=== PATIENT | female | born 1955 | race Caucasian/White ===

== ENCOUNTER 2017-03-20 12:17 | Inpatient (IN) | payer MEDICAID, OTHER ==
[~2017-03-20] VITALS: Ht 167.6 cm; Wt 95.4 kg
[~2017-03-20 12:17] MED LIST: CARI-277 PO; GABA100C9; SIMV-13; TRAM50TA2
[2017-03-20] MEDS ORDERED: ACETAMINOPHEN 325 MG TAB PO ONE ×2 (14:30→21:00)
[2017-03-20 14:39] LABS: Basophils # (auto) 0 uL; Basophils % (auto) 0.4 % (0.0-2.0); Eosinophils # (auto) 0 uL; Eosinophils % (auto) 0.1 % (0.0-7.0); Hematocrit 45.7 % (36.0-46.0); Hemoglobin 15.2 g/dL (12.2-16.2); Lymphocytes # (auto) 0.3 uL; Lymphocytes % (auto) 3.7 % (10.0-50.0); Mean Corpuscular Hemoglobin 30.9 pg (28.0-32.0); Mean Corpuscular Hgb Conc. 33.3 g/dL (32.0-36.0); Mean Corpuscular Volume 92.8 fL (80.0-100.0); Monocytes # (auto) 0.8 uL; Monocytes % (auto) 11.2 % (0.0-12.0); Neutrophils # (auto) 6.1 uL; Neutrophils % (auto) 84.6 % (37.0-80.0); Nucleated Red Blood Cells % 0.1 %; Platelet Count (auto) 194 10^3/uL (140-450); Red Blood Cells 4.92 10^6/uL (4.0-5.20); Red Cell Distribution Width 13.4 % (11.8-14.3); White Blood Cell 7.2 10^3/uL (4.4-10.8)
[2017-03-20] MEDS ORDERED: SODIUM CHLORIDE 0.9% 1,000 ML IV ONE (15:09)
[2017-03-20 15:14] LABS: Albumin 3.8 g/dL (3.4-5.0); BUN/Creatinine Ratio 13.4; Bilirubin, Total 0.4 mg/dL (0.2-1.0); Calcium 8.6 mg/dL (8.5-10.1); Potassium 3.8 mmol/L (3.5-5.1); Total Protein 8.1 g/dL (6.4-8.2)
[2017-03-20] MEDS ORDERED: LEVOFLOXACIN 500MG 100 ML IV ONE (15:15)
[2017-03-20 19:11] LABS: Urine Bacteria NONE SEEN /hpf (None Seen); Urine Blood 2+ /uL (Negative); Urine Hyaline Cast FEW /lpf (0 - 2); Urine Mucus FEW (None Seen); Urine WBC 1 /hpf (0 - 5)
[2017-03-20 23:20] VITALS: BP 138/92
[2017-03-21] MEDS ORDERED: ASPI81TA27 PO (02:08)
[2017-03-21] MEDS ORDERED: AMLO5TAB2 PO (02:08)
[2017-03-21] MEDS: ACETAMINOPHEN 500 MG TAB PO PRN ×3 (03:21→23:45)
[2017-03-21 05:00] VITALS: BP 140/75
[2017-03-21 06:03] LABS: Basophils # (auto) 0.1 uL; Basophils % (auto) 1.1 % (0.0-2.0); Eosinophils # (auto) 0 uL; Eosinophils % (auto) 0.1 % (0.0-7.0); Hematocrit 42.6 % (36.0-46.0); Hemoglobin 14.3 g/dL (12.2-16.2); Lymphocytes # (auto) 0.8 uL; Lymphocytes % (auto) 14.7 % (10.0-50.0); Mean Corpuscular Hemoglobin 31.2 pg (28.0-32.0); Mean Corpuscular Hgb Conc. 33.6 g/dL (32.0-36.0); Mean Corpuscular Volume 92.8 fL (80.0-100.0); Monocytes # (auto) 0.9 uL; Neutrophils # (auto) 3.4 uL; Neutrophils % (auto) 67.1 % (37.0-80.0); Platelet Count (auto) 168 10^3/uL (140-450); Red Blood Cells 4.59 10^6/uL (4.0-5.20); Red Cell Distribution Width 13.4 % (11.8-14.3); White Blood Cell 5.1 10^3/uL (4.4-10.8)
[2017-03-21 06:22] LABS: BUN/Creatinine Ratio 16.1; Calcium 8.1 mg/dL (8.5-10.1); Potassium 3.9 mmol/L (3.5-5.1)
[2017-03-21 08:00] VITALS: BP 153/85
[2017-03-21 09:47] VITALS: BP 153/85
[2017-03-21] MEDS: ASPirin-EC 81 mg tab PO SCH (09:52)
[2017-03-21] MEDS: amLODIPine BESYLATE 5 MG TAB PO SCH (09:53)
[2017-03-21] MEDS: OSELTAMIVIR 75 MG CAP PO SCH ×2 (10:00→22:00)
[2017-03-21 12:02] VITALS: BP 134/93
[2017-03-21 16:36] VITALS: BP 142/87
[2017-03-21] MEDS: LEVOFLOXACIN 500MG 100 ML IV SCH (19:50)
[2017-03-21] MEDS: ONDANSETRON HCL 4 MG/2 ML VIAL IV PRN (20:21)
[2017-03-21 22:47] VITALS: BP 151/109
[2017-03-22 05:45] VITALS: BP 137/80
[2017-03-22 08:00] VITALS: BP 133/63
[2017-03-22 08:58] VITALS: BP 142/77
[2017-03-22] MEDS: OSELTAMIVIR 75 MG CAP PO SCH ×3 (10:00→21:44)
[2017-03-22] MEDS: ACETAMINOPHEN 500 MG TAB PO PRN ×2 (10:16→21:45)
[2017-03-22] MEDS: ASPirin-EC 81 mg tab PO SCH (10:16)
[2017-03-22] MEDS: amLODIPine BESYLATE 5 MG TAB PO SCH (10:16)
[2017-03-22 13:27] VITALS: BP 103/53
[2017-03-22 17:17] VITALS: BP 118/75
[2017-03-22] MEDS: LEVOFLOXACIN 500MG 100 ML IV SCH (18:58)
[2017-03-22] MEDS: ONDANSETRON HCL 4 MG/2 ML VIAL IV PRN (20:40)
[2017-03-22] MEDS: guaiFENesin 200 MG/10 ML UD PO PRN (20:40)
[2017-03-23] VITALS (8 sets, daily range): BP systolic 112–152; BP diastolic 58–85
[2017-03-23 06:00] LABS: Hematocrit 41.4 % (36.0-46.0); Hemoglobin 13.9 g/dL (12.2-16.2); Mean Corpuscular Hemoglobin 31.2 pg (28.0-32.0); Mean Corpuscular Hgb Conc. 33.5 g/dL (32.0-36.0); Platelet Count (auto) 187 10^3/uL (140-450); Red Blood Cells 4.45 10^6/uL (4.0-5.20); Red Cell Distribution Width 13.1 % (11.8-14.3); White Blood Cell 3.3 10^3/uL (4.4-10.8)
[2017-03-23 06:18] LABS: Band Neutrophils % (manual) 0; Basophils % (manual) 0 (0.0-2.0); Blast Cells 0; Eosinophils % (manual) 0 (0-7); Metamyelocytes % 0; Myelocytes % 0; Promyelocytes % 0; Reactive Lymphocytes 0
[2017-03-23 06:21] LABS: Potassium 3.9 mmol/L (3.5-5.1)
[2017-03-23 06:26] LABS: BUN/Creatinine Ratio 14.1; Calcium 8.5 mg/dL (8.5-10.1)
[2017-03-23 06:28] LABS: Bilirubin, Total 0.2 mg/dL (0.2-1.0); Total Protein 6.5 g/dL (6.4-8.2)
[2017-03-23 07:18] LABS: Lymphocytes % (manual) 42 (10.0-50.0)
[2017-03-23 07:19] LABS: Monocytes % (manual) 14 (0-12)
[2017-03-23] MEDS: ASPirin-EC 81 mg tab PO SCH (11:07)
[2017-03-23] MEDS: OSELTAMIVIR 75 MG CAP PO SCH (11:07)
[2017-03-23] MEDS: amLODIPine BESYLATE 5 MG TAB PO SCH (11:07)
[2017-03-23] MEDS: ACETAMINOPHEN 500 MG TAB PO PRN (16:54)
[2017-03-23] MEDS: guaiFENesin 200 MG/10 ML UD PO PRN (16:54)
[2017-03-23] MEDS: LEVOFLOXACIN 500MG 100 ML IV SCH (19:42)
[2017-03-23] MEDS: ALBUTEROL SULF 2.5 MG/0.5ML(0.5%) NEB SOLN NEB PRN (19:53)
[2017-03-23] MEDS: IPRATROPIUM BROM 0.5 MG/2.5ML INH SOL NEB PRN (19:53)
[2017-03-24] VITALS (7 sets, daily range): BP systolic 130–142; BP diastolic 72–87
[2017-03-24] MEDS: OSELTAMIVIR 75 MG CAP PO SCH ×3 (00:06→22:38)
[2017-03-24] MEDS: THROAT LOZENGES(CEPASTAT) MT PRN ×2 (00:10→06:54)
[2017-03-24] MEDS: ALBUTEROL SULF 2.5 MG/0.5ML(0.5%) NEB SOLN NEB PRN ×2 (03:45→06:56)
[2017-03-24] MEDS: IPRATROPIUM BROM 0.5 MG/2.5ML INH SOL NEB PRN ×2 (03:45→06:56)
[2017-03-24 07:08] LABS: Hematocrit 41.4 % (36.0-46.0); Hemoglobin 13.8 g/dL (12.2-16.2); Mean Corpuscular Hemoglobin 30.7 pg (28.0-32.0); Mean Corpuscular Hgb Conc. 33.3 g/dL (32.0-36.0); Mean Corpuscular Volume 92.3 fL (80.0-100.0); Platelet Count (auto) 171 10^3/uL (140-450); Red Blood Cells 4.48 10^6/uL (4.0-5.20); Red Cell Distribution Width 13.2 % (11.8-14.3)
[2017-03-24 07:18] LABS: Basophils % (manual) 0 (0.0-2.0); Blast Cells 0; Metamyelocytes % 0; Myelocytes % 0; Promyelocytes % 0; Reactive Lymphocytes 0
[2017-03-24 07:35] LABS: BUN/Creatinine Ratio 16.3; Calcium 8.5 mg/dL (8.5-10.1); Magnesium 2.2 mg/dL (1.6-2.6); Potassium 3.9 mmol/L (3.5-5.1)
[2017-03-24] MEDS: amLODIPine BESYLATE 5 MG TAB PO SCH (11:12)
[2017-03-24] MEDS: ASPirin-EC 81 mg tab PO SCH (11:13)
[2017-03-24 11:40] LABS: Band Neutrophils % (manual) 1; Eosinophils % (manual) 1 (0-7); Lymphocytes % (manual) 43 (10.0-50.0); Monocytes % (manual) 11 (0-12)
[2017-03-24] MEDS ORDERED: TAMIFLU PO (14:34)
[2017-03-24] MEDS ORDERED: LEVO500T21 PO (14:34)
[2017-03-24] MEDS ORDERED: ALBUAER3 IN (14:35)
[2017-03-24] MEDS: LEVOFLOXACIN 500MG 100 ML IV SCH (19:29)
[2017-03-24] MEDS: guaiFENesin 200 MG/10 ML UD PO PRN (22:38)
[2017-03-25 04:35] VITALS: BP 134/83
[2017-03-25 09:30] VITALS: BP 136/85
[2017-03-25] MEDS: ASPirin-EC 81 mg tab PO SCH (10:04)
[2017-03-25] MEDS: amLODIPine BESYLATE 5 MG TAB PO SCH (10:06)
[2017-03-25] MEDS: OSELTAMIVIR 75 MG CAP PO SCH (10:07)
[2017-03-25 13:00] VITALS: BP 134/71
== END 2017-03-25 13:30 | disposition home or self-care (01) | DRG 140 ==
LOC: ER 12:17 → EDBD 12:17 → TELE 12:18 → TELE-WESTW 23:20 → WEST WING 03-24 09:16
PROVIDERS: ADMIT Nurse Practitioner Family; ATTEND Internal Medicine
DX: J44.0 Chronic obstructive pulmonary disease with (acute) lower respiratory infection (principal); J96.21 Acute and chronic respiratory failure with hypoxia; J10.08 Influenza due to other identified influenza virus with other specified pneumonia; J44.1 Chronic obstructive pulmonary disease with (acute) exacerbation; J20.9 Acute bronchitis, unspecified; E66.9 Obesity, unspecified; E78.5 Hyperlipidemia, unspecified; G89.29 Other chronic pain; I10 Essential (primary) hypertension; J18.9 Pneumonia, unspecified organism; Z82.49 Family history of ischemic heart disease and other diseases of the circulatory system; Z99.81 Dependence on supplemental oxygen; Z86.73 Personal history of transient ischemic attack (TIA), and cerebral infarction without residual deficits; Z68.33 Body mass index [BMI] 33.0-33.9, adult; Z87.891 Personal history of nicotine dependence; Z83.3 Family history of diabetes mellitus; Z90.710 Acquired absence of both cervix and uterus; Z90.49 Acquired absence of other specified parts of digestive tract; Z79.899 Other long term (current) drug therapy; Z88.1 Allergy status to other antibiotic agents; Z88.2 Allergy status to sulfonamides; Z88.5 Allergy status to narcotic agent; Z88.0 Allergy status to penicillin; Z88.8 Allergy status to other drugs, medicaments and biological substances; Z91.013 Allergy to seafood; Z90.89 Acquired absence of other organs
CPT/HCPCS: 36415; 36600; 71045; 80048; 80053; 81001; 82805; 83605; 83735; 84484; 85007; 85025; 85027; 85379; 87040; 87400; 93005; 93970; 94640; 96365; 97163; J1956; J2405

== ENCOUNTER 2018-11-12 09:48 | Emergency (ER) | payer MEDICAID ==
[~2018-11-12] VITALS: Ht 167.6 cm; Wt 99.8 kg
[~2018-11-12 09:48] MED LIST changes: +ALBUAER3 IN; +AMLO5TAB15 PO; +ASPI-404 PO; +LEVO500T21 PO; +TAMIFLU PO
[2018-11-12] MEDS ORDERED: cloNIDine HCL 0.1 MG TAB PO ONE (10:15)
[2018-11-12 10:48] LABS: Basophils # (auto) 0 uL; Basophils % (auto) 0.6 % (0.0-2.0); Eosinophils # (auto) 0.2 uL; Eosinophils % (auto) 2.6 % (0.0-7.0); Hemoglobin 15.9 g/dL (12.2-16.2); Lymphocytes # (auto) 1.6 uL; Lymphocytes % (auto) 26.6 % (10.0-50.0); Mean Corpuscular Hemoglobin 31.2 pg (28.0-32.0); Mean Corpuscular Hgb Conc. 33.1 g/dL (32.0-36.0); Mean Corpuscular Volume 94.3 fL (80.0-100.0); Monocytes # (auto) 0.5 uL; Monocytes % (auto) 7.4 % (0.0-12.0); Neutrophils # (auto) 3.8 uL; Neutrophils % (auto) 62.8 % (37.0-80.0); Nucleated Red Blood Cells % 0.2 %; Platelet Count (auto) 283 10^3/uL (140-450); Red Blood Cells 5.09 10^6/uL (4.0-5.20); Red Cell Distribution Width 13.6 % (11.8-14.3); White Blood Cell 6.1 10^3/uL (4.4-10.8)
[2018-11-12 10:56] LABS: INR 0.95 (0.9-1.15); Partial Thromboplastin Time 27.4 sec (23.64-32.05)
[2018-11-12 10:59] LABS: Potassium 3.8 mmol/L (3.5-5.1)
[2018-11-12 11:05] LABS: Albumin 3.7 g/dL (3.4-5.0); BUN/Creatinine Ratio 15.9; Bilirubin, Total 0.4 mg/dL (0.2-1.0); Total Protein 7.9 g/dL (6.4-8.2)
[2018-11-12 14:26] LABS: Urine Bacteria NONE SEEN /hpf (None Seen); Urine Blood Negative /uL (Negative); Urine Mucus FEW (None Seen); Urine Specific Gravity 1.017 (1.001-1.035); Urine WBC <1 /hpf (0 - 5)
[2018-11-12 15:16] VITALS: BP 158/85
== END 2018-11-12 15:44 | disposition home or self-care (01) ==
LOC: EDBD 09:48 → ER 09:51
DX: R04.0 Epistaxis (principal); J44.9 Chronic obstructive pulmonary disease, unspecified; E78.5 Hyperlipidemia, unspecified; I10 Essential (primary) hypertension; Z90.710 Acquired absence of both cervix and uterus; Z88.8 Allergy status to other drugs, medicaments and biological substances; Z88.5 Allergy status to narcotic agent; Z88.0 Allergy status to penicillin; Z88.2 Allergy status to sulfonamides; Z88.1 Allergy status to other antibiotic agents; Z79.82 Long term (current) use of aspirin; Z79.899 Other long term (current) drug therapy; Z86.73 Personal history of transient ischemic attack (TIA), and cerebral infarction without residual deficits
CPT/HCPCS: 30901; 36415; 80053; 81001; 85025; 85610; 85730; 93005

== ENCOUNTER → 2020-02-19 | Outpatient (CLI) | payer MEDICAID ==
[~2020-02-19] MED LIST changes: -ASPI-404 PO; +ASPI-543 PO
[2020-02-19 10:29] LABS: Basophils # (auto) 0.1 10 ^3/uL (0-0.2); Basophils % (auto) 0.8 % (0.0-2.0); Eosinophils # (auto) 0.2 10 ^3/uL (0-0.8); Eosinophils % (auto) 2.4 % (0.0-7.0); Hematocrit 50.9 % (36.0-46.0); Hemoglobin 16.6 g/dL (12.2-16.2); Lymphocytes # (auto) 1.6 10 ^3/uL (0.4-5.4); Lymphocytes % (auto) 23.9 % (10.0-50.0); Mean Corpuscular Hemoglobin 30.6 pg (28.0-32.0); Mean Corpuscular Hgb Conc. 32.6 g/dL (32.0-36.0); Mean Corpuscular Volume 93.9 fL (80.0-100.0); Monocytes # (auto) 0.6 10 ^3/uL (0-1.3); Monocytes % (auto) 8.9 % (0.0-12.0); Neutrophils # (auto) 4.2 10 ^3/uL (1.6-8.6); Nucleated Red Blood Cells % 0.1 %; Platelet Count (auto) 263 10^3/uL (140-450); Red Blood Cells 5.42 10^6/uL (4.0-5.20); Red Cell Distribution Width 13.6 % (11.8-14.3); White Blood Cell 6.6 10^3/uL (4.4-10.8)
[2020-02-19 11:13] LABS: Urine Bacteria FEW /hpf (None Seen); Urine Blood Negative /uL (Negative); Urine Mucus FEW (None Seen); Urine Specific Gravity 1.017 (1.001-1.035); Urine WBC <1 /hpf (0 - 5)
[2020-02-19 11:35] LABS: Albumin 3.6 g/dL (3.4-5.0); BUN/Creatinine Ratio 17.6; Bilirubin, Total 0.6 mg/dL (0.2-1.0); Calcium 9.6 mg/dL (8.5-10.1); Potassium 4.1 mmol/L (3.5-5.1); Total Protein 7.5 g/dL (6.4-8.2)
== END | disposition home or self-care (01) ==
LOC: LAB 09:51
PROVIDERS: ATTEND Internal Medicine
DX: I10 Essential (primary) hypertension (principal)
CPT/HCPCS: 36415; 80053; 80061; 81001; 82306; 83036; 84443; 85025; 86431

== ENCOUNTER → 2020-04-22 | Outpatient (CLI) | payer MEDICAID ==
[~2020-04-22] MED LIST changes: +AMLO-489 PO; -AMLO5TAB15 PO; -LEVO500T21 PO; +LEVO500T31 PO
== END | disposition home or self-care (01) ==
LOC: LAB 14:54
PROVIDERS: ATTEND Internal Medicine
DX: I10 Essential (primary) hypertension (principal)
CPT/HCPCS: 82274

== ENCOUNTER → 2020-05-22 | Outpatient (CLI) | payer MEDICAID | END | disposition home or self-care (01) | LOC: LAB 12:01 | PROVIDERS: ATTEND Internal Medicine Pulmonary Disease | DX: Z01.812 Encounter for preprocedural laboratory examination (principal); Z20.822 Contact with and (suspected) exposure to COVID-19 | CPT/HCPCS: 36415; 87426 ==

== ENCOUNTER → 2020-05-22 | Outpatient (CLI) | payer MEDICAID | END | disposition home or self-care (01) | LOC: PF 12:50 | PROVIDERS: ATTEND Internal Medicine Pulmonary Disease | DX: J44.9 Chronic obstructive pulmonary disease, unspecified (principal) | CPT/HCPCS: 94060; 94727; 94729 ==

== ENCOUNTER 2020-06-02 13:29 | Emergency (ER) | payer MEDICAID ==
[~2020-06-02] VITALS: Ht 170.2 cm; Wt 101.2 kg
[2020-06-02 13:38] VITALS: BP 150/72
[2020-06-02 15:12] LABS: Basophils # (auto) 0 10 ^3/uL (0-0.2); Basophils % (auto) 0.8 % (0.0-2.0); Eosinophils # (auto) 0.1 10 ^3/uL (0-0.8); Eosinophils % (auto) 2.2 % (0.0-7.0); Hemoglobin 16.8 g/dL (12.2-16.2); Lymphocytes # (auto) 1.7 10 ^3/uL (0.4-5.4); Mean Corpuscular Hemoglobin 31.4 pg (28.0-32.0); Mean Corpuscular Hgb Conc. 33.7 g/dL (32.0-36.0); Mean Corpuscular Volume 93.2 fL (80.0-100.0); Monocytes # (auto) 0.6 10 ^3/uL (0-1.3); Monocytes % (auto) 10.4 % (0.0-12.0); Neutrophils # (auto) 3.6 10 ^3/uL (1.6-8.6); Neutrophils % (auto) 59.6 % (37.0-80.0); Nucleated Red Blood Cells % 0.2 %; Red Blood Cells 5.36 10^6/uL (4.0-5.20); Red Cell Distribution Width 13.6 % (11.8-14.3); White Blood Cell 6.1 10^3/uL (4.4-10.8)
[2020-06-02 15:20] LABS: Alanine Aminotransferase 26 U/L (13-56); Albumin 3.7 g/dL (3.4-5.0); Anion Gap 7 (5-15); Aspartate Aminotransferase 16 U/L (15-37); BUN/Creatinine Ratio 14.7; Blood Urea Nitrogen 14 mg/dL (7-18); Calcium 8.8 mg/dL (8.5-10.1); Carbon Dioxide 31 mmol/L (21-32); Chloride 103 mmol/L (98-107); GFR African American 76 mL/min; GFR Non-African American 63 mL/min; Glucose 95 mg/dL (74-106); Potassium 4.1 mmol/L (3.5-5.1); Sodium 141 mmol/L (136-145)
[2020-06-02 15:26] LABS: Alkaline Phosphatase 110 U/L (45-117); Bilirubin, Total 0.6 mg/dL (0.2-1.0); Total Protein 7.7 g/dL (6.4-8.2)
[2020-11-27] MEDS ORDERED: CETI10TA2 PO (14:33)
== END 2020-06-02 17:11 | disposition home or self-care (01) ==
LOC: ER 13:29
DX: J44.1 Chronic obstructive pulmonary disease with (acute) exacerbation (principal); F41.9 Anxiety disorder, unspecified; E78.5 Hyperlipidemia, unspecified; I10 Essential (primary) hypertension; Z99.81 Dependence on supplemental oxygen; Z86.73 Personal history of transient ischemic attack (TIA), and cerebral infarction without residual deficits; Z79.899 Other long term (current) drug therapy; Z88.1 Allergy status to other antibiotic agents; Z88.5 Allergy status to narcotic agent; Z91.013 Allergy to seafood
CPT/HCPCS: 36415; 71045; 80053; 83880; 84484; 85025; 93005

== ENCOUNTER 2020-11-27 13:00 | Outpatient (CLI) | payer MEDICAID ==
[~2020-11-27] VITALS: Ht 167.6 cm; Wt 102.5 kg
[2020-11-27 13:41] LABS: Basophils # (auto) 0.1 10 ^3/uL (0-0.2); Basophils % (auto) 1.1 % (0.0-2.0); Eosinophils # (auto) 0.1 10 ^3/uL (0-0.8); Eosinophils % (auto) 2.1 % (0.0-7.0); Hematocrit 51.8 % (36.0-46.0); Hemoglobin 17.5 g/dL (12.2-16.2); Lymphocytes # (auto) 1.8 10 ^3/uL (0.4-5.4); Lymphocytes % (auto) 26.7 % (10.0-50.0); Mean Corpuscular Hemoglobin 32.2 pg (28.0-32.0); Mean Corpuscular Hgb Conc. 33.8 g/dL (32.0-36.0); Mean Corpuscular Volume 95.3 fL (80.0-100.0); Monocytes # (auto) 0.6 10 ^3/uL (0-1.3); Monocytes % (auto) 8.7 % (0.0-12.0); Neutrophils # (auto) 4.2 10 ^3/uL (1.6-8.6); Neutrophils % (auto) 61.4 % (37.0-80.0); Nucleated Red Blood Cells % 0.1 %; Red Blood Cells 5.44 10^6/uL (4.0-5.20); Red Cell Distribution Width 14.3 % (11.8-14.3); White Blood Cell 6.9 10^3/uL (4.4-10.8)
[2020-11-27 14:12] LABS: Albumin 3.8 g/dL (3.4-5.0); Calcium 9.4 mg/dL (8.5-10.1); Potassium 3.8 mmol/L (3.5-5.1)
[2020-11-27 14:15] LABS: BUN/Creatinine Ratio 15.1; Bilirubin, Total 0.8 mg/dL (0.2-1.0); Total Protein 7.5 g/dL (6.4-8.2)
[2020-11-27] MEDS ORDERED: IPRA0.03 (14:33)
[2020-11-27] MEDS ORDERED: TIOT17SP IN (14:33)
[2020-11-27] MEDS ORDERED: CETI10TA80 PO (14:33)
== END 2020-11-27 13:20 | disposition home or self-care (01) ==
LOC: LAB 13:00 → EDSTATUS 12-02 12:30
PROVIDERS: ATTEND Internal Medicine Gastroenterology
DX: Z01.818 Encounter for other preprocedural examination (principal); J44.9 Chronic obstructive pulmonary disease, unspecified; F41.9 Anxiety disorder, unspecified; F17.200 Nicotine dependence, unspecified, uncomplicated; Z68.36 Body mass index [BMI] 36.0-36.9, adult; Z88.1 Allergy status to other antibiotic agents; Z88.0 Allergy status to penicillin; Z91.013 Allergy to seafood; Z88.2 Allergy status to sulfonamides; Z88.8 Allergy status to other drugs, medicaments and biological substances; Z90.710 Acquired absence of both cervix and uterus; Z80.9 Family history of malignant neoplasm, unspecified; Z98.890 Other specified postprocedural states; Z79.899 Other long term (current) drug therapy; Z20.822 Contact with and (suspected) exposure to COVID-19
CPT/HCPCS: 36415; 80053; 85025; U0003

== ENCOUNTER → 2021-01-05 | Outpatient (CLI) | payer MEDICAID ==
[~2021-01-05] MED LIST changes: -ASPI-543 PO; +CETI10TA2 PO; -GABA100C9; +IPRA0.03; -SIMV-13; +TIOT17SP IN
[2021-01-05 10:35] LABS: Basophils # (auto) 0 10 ^3/uL (0-0.2); Basophils % (auto) 0.6 % (0.0-2.0); Eosinophils # (auto) 0.1 10 ^3/uL (0-0.8); Eosinophils % (auto) 2.2 % (0.0-7.0); Hematocrit 51.9 % (36.0-46.0); Hemoglobin 17.5 g/dL (12.2-16.2); Lymphocytes # (auto) 1.5 10 ^3/uL (0.4-5.4); Lymphocytes % (auto) 29.3 % (10.0-50.0); Mean Corpuscular Hemoglobin 32.1 pg (28.0-32.0); Mean Corpuscular Hgb Conc. 33.7 g/dL (32.0-36.0); Mean Corpuscular Volume 95.3 fL (80.0-100.0); Monocytes # (auto) 0.5 10 ^3/uL (0-1.3); Monocytes % (auto) 9.7 % (0.0-12.0); Neutrophils % (auto) 58.2 % (37.0-80.0); Nucleated Red Blood Cells % 0.1 %; Red Blood Cells 5.44 10^6/uL (4.0-5.20); Red Cell Distribution Width 13.5 % (11.8-14.3); White Blood Cell 5.2 10^3/uL (4.4-10.8)
[2021-01-05 11:00] LABS: Albumin 3.6 g/dL (3.4-5.0); Calcium 9.5 mg/dL (8.5-10.1); Potassium 4.1 mmol/L (3.5-5.1)
[2021-01-05 11:07] LABS: BUN/Creatinine Ratio 17.2; Bilirubin, Total 0.6 mg/dL (0.2-1.0); Total Protein 7.5 g/dL (6.4-8.2)
== END | disposition home or self-care (01) ==
LOC: LAB 10:04
PROVIDERS: ATTEND Internal Medicine
DX: R73.9 Hyperglycemia, unspecified (principal)
CPT/HCPCS: 36415; 80053; 80061; 82306; 82607; 83036; 85025; 86225; 86235

== ENCOUNTER 2021-04-02 12:51 | Inpatient (IN) | payer MEDICAID ==
[~2021-04-02] VITALS: Ht 165.1 cm; Wt 107.0 kg
[2021-04-02 14:07] LABS: Basophils # (auto) 0 10 ^3/uL (0-0.2); Basophils % (auto) 0.6 % (0.0-2.0); Eosinophils # (auto) 0 10 ^3/uL (0-0.8); Eosinophils % (auto) 0.3 % (0.0-7.0); Hemoglobin 15.9 g/dL (12.2-16.2); Lymphocytes # (auto) 0.6 10 ^3/uL (0.4-5.4); Lymphocytes % (auto) 11.2 % (10.0-50.0); Mean Corpuscular Hemoglobin 31.3 pg (28.0-32.0); Mean Corpuscular Hgb Conc. 33.2 g/dL (32.0-36.0); Mean Corpuscular Volume 94.4 fL (80.0-100.0); Monocytes # (auto) 0.6 10 ^3/uL (0-1.3); Monocytes % (auto) 11.9 % (0.0-12.0); Neutrophils # (auto) 3.9 10 ^3/uL (1.6-8.6); Nucleated Red Blood Cells % 0.1 %; Red Blood Cells 5.08 10^6/uL (4.0-5.20); Red Cell Distribution Width 13.9 % (11.8-14.3); White Blood Cell 5.1 10^3/uL (4.4-10.8)
[2021-04-02 14:40] LABS: Albumin 2.8 g/dL (3.4-5.0); Calcium 8.8 mg/dL (8.5-10.1); Magnesium 2.9 mg/dL (1.6-2.6); Potassium 3.7 mmol/L (3.5-5.1)
[2021-04-02 14:47] LABS: BUN/Creatinine Ratio 9.9; Bilirubin, Total 0.5 mg/dL (0.2-1.0)
[2021-04-02 15:04] LABS: Urine Bacteria FEW /hpf (None Seen); Urine Blood Negative /uL (Negative); Urine Mucus FEW (None Seen); Urine Specific Gravity 1.013 (1.001-1.035); Urine WBC 1 /hpf (0 - 5)
[2021-04-02] MEDS ORDERED: IPRATROPIUM BROM 0.5 MG/2.5ML INH SOL NEB ONE (18:30)
[2021-04-02] MEDS ORDERED: AZITHROMYCIN 500MG/ 250ML 250 ML IV ONE (18:30)
[2021-04-02] MEDS ORDERED: cefTRIAXone 1GM/50ML D5W 50 ML IV ONE (18:30)
[2021-04-02] MEDS: DexAMETHasone SOD PHOS 10MG/1ML VIAL INJ IV ONE ×2 (18:56→19:01)
[2021-04-02] MEDS ORDERED: IOHEXOL 300 MG/ML 100ML BOTTLE IJ ONE (22:01)
[2021-04-02] MEDS ORDERED: IPRATROPIUM BROM 0.5 MG/2.5ML INH SOL ONE (22:03)
[2021-04-03] MEDS ORDERED: VANCOMYCIN PER PHARMACY 0 MG IV SCH (06:45)
[2021-04-03] MEDS ORDERED: REMDESIVIR PER PHARMACY 0 ML IV SCH (06:45)
[2021-04-03] MEDS ORDERED: HYDROcodone-ACET 5/325MG TAB PO PRN (06:45)
[2021-04-03] MEDS ORDERED: ONDANSETRON HCL 4 MG/2 ML VIAL IV PRN (06:45)
[2021-04-03] MEDS ORDERED: hydrALAZINE HCL 10 MG TAB PO PRN (06:45)
[2021-04-03] MEDS ORDERED: MORPHINE SULFATE INJECTION 2 MG/ML SYRG IV PRN (06:45)
[2021-04-03] MEDS ORDERED: ALBUTEROL SULF 2.5 MG/0.5ML(0.5%) NEB SOLN NEB PRN (06:45)
[2021-04-03] MEDS ORDERED: ALBUTEROL SULF HFA 90MCG INH 200DOSE IN PRN (07:30)
[2021-04-03] MEDS: AZTREONAM 1GM INJ 1 GM in D5W 5% 50 ML IV SCH ×2 (07:57→16:42)
[2021-04-03] MEDS ORDERED: VANCOMYCIN 1GM/250ML 250 ML IV ONE (09:00)
[2021-04-03] MEDS ORDERED: REMDESIVIR 200 MG in NS 210ml LOADING DOSE ADULT IV ONE (09:15)
[2021-04-03] MEDS: CHOLECALCIFEROL (VITD3) 2,000 UNIT CAP/TAB PO SCH (10:00)
[2021-04-03] MEDS ORDERED: BUDESONIDE (INHALATION) 180 MCG IH IN SCH (10:00)
[2021-04-03] MEDS: ASCORBIC ACID 500 MG TAB PO SCH (10:47)
[2021-04-03] MEDS: FAMOTIDINE 20 MG TAB PO SCH (10:47)
[2021-04-03] MEDS: ZINC SULFATE 220mg CAP or TAB PO SCH (10:47)
[2021-04-03] MEDS: DexAMETHasone SOD PHOS 10MG/1ML VIAL INJ IV SCH (11:50)
[2021-04-03] MEDS ORDERED: IPRATROPIUM BROM 0.5 MG/2.5ML INH SOL NEB SCH (12:00)
[2021-04-03] MEDS ORDERED: DEXTROSE (50%) 50ML SYRG IV PRN (12:00)
[2021-04-03] MEDS ORDERED: IPRATROPIUM BROMIDE HFA AER IN SCH (12:00)
[2021-04-03] MEDS: IPRATROPIUM BROMIDE HFA AER IN SCH ×3 (12:08→22:00)
[2021-04-03] MEDS: THROAT LOZENGES(CEPASTAT) MT PRN (16:49)
[2021-04-03] MEDS: InsuLIN REG 1unit/0.01ml Soln (100units/ml) SC SCH (17:00)
[2021-04-03] MEDS: ACCU-CHEK COMFORT CURVE STRIP VI SCH ×2 (17:24→22:00)
[2021-04-03] MEDS: VANCOMYCIN 1GM/250ML 250 ML IV SCH (21:10)
[2021-04-04] MEDS: ASCORBIC ACID 500 MG TAB PO SCH ×3 (01:29→22:07)
[2021-04-04] MEDS: AZTREONAM 1GM INJ 1 GM in D5W 5% 50 ML IV SCH ×4 (01:30→23:48)
[2021-04-04] MEDS: InsuLIN REG 1unit/0.01ml Soln (100units/ml) SC SCH ×5 (01:34→22:07)
[2021-04-04] MEDS: IPRATROPIUM BROMIDE HFA AER IN SCH ×4 (06:35→22:00)
[2021-04-04] MEDS: ACCU-CHEK COMFORT CURVE STRIP VI SCH ×4 (07:29→22:07)
[2021-04-04] MEDS: VANCOMYCIN 1GM/250ML 250 ML IV SCH ×2 (07:46→15:55)
[2021-04-04 08:43] LABS: Basophils # (auto) 0 10 ^3/uL (0-0.2); Basophils % (auto) 0.7 % (0.0-2.0); Eosinophils # (auto) 0.1 10 ^3/uL (0-0.8); Eosinophils % (auto) 1.6 % (0.0-7.0); Hematocrit 45.6 % (36.0-46.0); Hemoglobin 15.1 g/dL (12.2-16.2); Lymphocytes # (auto) 0.8 10 ^3/uL (0.4-5.4); Lymphocytes % (auto) 20.8 % (10.0-50.0); Mean Corpuscular Hemoglobin 31.3 pg (28.0-32.0); Mean Corpuscular Hgb Conc. 33.2 g/dL (32.0-36.0); Mean Corpuscular Volume 94.4 fL (80.0-100.0); Monocytes # (auto) 0.7 10 ^3/uL (0-1.3); Monocytes % (auto) 17.7 % (0.0-12.0); Neutrophils # (auto) 2.2 10 ^3/uL (1.6-8.6); Neutrophils % (auto) 59.2 % (37.0-80.0); Nucleated Red Blood Cells % 0.4 %; Red Blood Cells 4.83 10^6/uL (4.0-5.20); Red Cell Distribution Width 13.8 % (11.8-14.3); White Blood Cell 3.7 10^3/uL (4.4-10.8)
[2021-04-04 09:00] LABS: INR 1.05 (0.9-1.15); Partial Thromboplastin Time 28.3 sec (23.6-33.0)
[2021-04-04] MEDS: DexAMETHasone SOD PHOS 10MG/1ML VIAL INJ IV SCH (09:45)
[2021-04-04] MEDS: FAMOTIDINE 20 MG TAB PO SCH (10:05)
[2021-04-04] MEDS: CHOLECALCIFEROL (VITD3) 2,000 UNIT CAP/TAB PO SCH (10:05)
[2021-04-04] MEDS: ZINC SULFATE 220mg CAP or TAB PO SCH (10:05)
[2021-04-04 13:43] LABS: Albumin 2.7 g/dL (3.4-5.0); Potassium 4.6 mmol/L (3.5-5.1)
[2021-04-04 13:51] LABS: BUN/Creatinine Ratio 12.5; Bilirubin, Total 0.5 mg/dL (0.2-1.0); CRP High Sensitivity 5.18 mg/dL (< 0.3)
[2021-04-04] MEDS: REMDESIVIR 100mg 100 MG in SODIUM CHL 0.9% 230 ML IV SCH (15:07)
[2021-04-04] MEDS: APIXABAN 2.5 MG TAB PO SCH (22:06)
[2021-04-04] MEDS: THROAT LOZENGES(CEPASTAT) MT PRN (22:11)
[2021-04-05] MEDS: VANCOMYCIN 1GM/250ML 250 ML IV SCH ×2 (02:00→13:49)
[2021-04-05] MEDS: ACETAMINOPHEN 325 MG TAB PO PRN (03:04)
[2021-04-05] MEDS: ACCU-CHEK COMFORT CURVE STRIP VI SCH ×4 (06:29→22:13)
[2021-04-05] MEDS: IPRATROPIUM BROMIDE HFA AER IN SCH ×4 (06:40→23:48)
[2021-04-05] MEDS: InsuLIN REG 1unit/0.01ml Soln (100units/ml) SC SCH ×4 (06:45→22:00)
[2021-04-05] MEDS ORDERED: FUROSEMIDE 20 MG/2 ML VIAL IV ONE (08:30)
[2021-04-05] MEDS: AZTREONAM 1GM INJ 1 GM in D5W 5% 50 ML IV SCH ×3 (09:36→23:51)
[2021-04-05] MEDS: DexAMETHasone SOD PHOS 10MG/1ML VIAL INJ IV SCH ×2 (09:36→09:43)
[2021-04-05] MEDS: APIXABAN 2.5 MG TAB PO SCH (09:37)
[2021-04-05] MEDS: ZINC SULFATE 220mg CAP or TAB PO SCH (09:37)
[2021-04-05] MEDS: CHOLECALCIFEROL (VITD3) 2,000 UNIT CAP/TAB PO SCH (09:37)
[2021-04-05] MEDS: ASCORBIC ACID 500 MG TAB PO SCH ×2 (09:37→22:17)
[2021-04-05] MEDS: FAMOTIDINE 20 MG TAB PO SCH (09:37)
[2021-04-05] MEDS: THROAT LOZENGES(CEPASTAT) MT PRN (09:38)
[2021-04-05 11:27] LABS: Albumin 3.1 g/dL (3.4-5.0); Calcium 9.7 mg/dL (8.5-10.1); Potassium 3.9 mmol/L (3.5-5.1)
[2021-04-05 11:31] LABS: BUN/Creatinine Ratio 14.5; Bilirubin, Total 0.6 mg/dL (0.2-1.0); Total Protein 7.5 g/dL (6.4-8.2)
[2021-04-05] MEDS: diphenhdrAMINE HCL 50 MG/1 ML VL ONE (12:07)
[2021-04-05] MEDS: REMDESIVIR 100mg 100 MG in SODIUM CHL 0.9% 230 ML IV SCH (16:29)
[2021-04-05 22:00] VITALS: BP 139/76
[2021-04-06] MEDS ORDERED: AMLO-489 PO (00:49)
[2021-04-06] MEDS ORDERED: IPRIH IN (00:49)
[2021-04-06 00:51] VITALS: BP 139/76
[2021-04-06] MEDS: VANCOMYCIN 1GM/250ML 250 ML IV SCH ×2 (01:27→10:48)
[2021-04-06] MEDS ORDERED: diphenhdrAMINE HCL 50 MG/1 ML VL IV ONE (03:00)
[2021-04-06 05:00] VITALS: BP 134/62
[2021-04-06] MEDS: IPRATROPIUM BROMIDE HFA AER IN SCH ×4 (06:00→23:15)
[2021-04-06] MEDS: ACCU-CHEK COMFORT CURVE STRIP VI SCH ×4 (06:21→22:23)
[2021-04-06] MEDS: InsuLIN REG 1unit/0.01ml Soln (100units/ml) SC SCH ×4 (06:21→22:00)
[2021-04-06 07:37] LABS: Albumin 2.9 g/dL (3.4-5.0); Calcium 9.1 mg/dL (8.5-10.1); Potassium 4.2 mmol/L (3.5-5.1)
[2021-04-06 07:41] LABS: BUN/Creatinine Ratio 19.6; Bilirubin, Total 0.5 mg/dL (0.2-1.0); Total Protein 6.2 g/dL (6.4-8.2)
[2021-04-06] MEDS: DexAMETHasone SOD PHOS 10MG/1ML VIAL INJ IV SCH (08:50)
[2021-04-06] MEDS: ZINC SULFATE 220mg CAP or TAB PO SCH (08:50)
[2021-04-06] MEDS: FAMOTIDINE 20 MG TAB PO SCH (08:50)
[2021-04-06] MEDS: CHOLECALCIFEROL (VITD3) 2,000 UNIT CAP/TAB PO SCH (08:51)
[2021-04-06] MEDS: ASCORBIC ACID 500 MG TAB PO SCH ×2 (08:51→22:14)
[2021-04-06 09:00] VITALS: BP 148/77
[2021-04-06] MEDS: AZTREONAM 1GM INJ 1 GM in D5W 5% 50 ML IV SCH ×3 (09:04→23:59)
[2021-04-06 12:53] VITALS: BP 124/63
[2021-04-06] MEDS: THROAT LOZENGES(CEPASTAT) MT PRN (13:02)
[2021-04-06] MEDS: REMDESIVIR 100mg 100 MG in SODIUM CHL 0.9% 230 ML IV SCH (15:03)
[2021-04-06 16:44] VITALS: BP 107/55
[2021-04-06 22:00] VITALS: BP 141/70
[2021-04-06] MEDS: CLINDAMYCIN 900MG IV 50 ML IV SCH (22:00)
[2021-04-06] MEDS: ENOXAPARIN SOD 40 MG/0.4 ML SYRINGE SC SCH (22:15)
[2021-04-07 05:00] VITALS: BP 122/72
[2021-04-07] MEDS: CLINDAMYCIN 900MG IV 50 ML IV SCH (05:02)
[2021-04-07] MEDS: ACCU-CHEK COMFORT CURVE STRIP VI SCH ×4 (06:06→22:00)
[2021-04-07] MEDS: InsuLIN REG 1unit/0.01ml Soln (100units/ml) SC SCH ×4 (06:07→22:00)
[2021-04-07] MEDS: IPRATROPIUM BROMIDE HFA AER IN SCH ×4 (07:15→22:15)
[2021-04-07 07:46] LABS: Basophils # (auto) 0 10 ^3/uL (0-0.2); Basophils % (auto) 0.8 % (0.0-2.0); Eosinophils # (auto) 0.2 10 ^3/uL (0-0.8); Eosinophils % (auto) 3.8 % (0.0-7.0); Hematocrit 46.4 % (36.0-46.0); Hemoglobin 15.2 g/dL (12.2-16.2); Lymphocytes % (auto) 19.1 % (10.0-50.0); Mean Corpuscular Hemoglobin 30.8 pg (28.0-32.0); Mean Corpuscular Hgb Conc. 32.8 g/dL (32.0-36.0); Mean Corpuscular Volume 93.9 fL (80.0-100.0); Monocytes # (auto) 0.9 10 ^3/uL (0-1.3); Monocytes % (auto) 17.4 % (0.0-12.0); Neutrophils # (auto) 3.2 10 ^3/uL (1.6-8.6); Neutrophils % (auto) 58.9 % (37.0-80.0); Nucleated Red Blood Cells % 0.2 %; Red Blood Cells 4.94 10^6/uL (4.0-5.20); Red Cell Distribution Width 13.8 % (11.8-14.3); White Blood Cell 5.4 10^3/uL (4.4-10.8)
[2021-04-07] MEDS: AZTREONAM 1GM INJ 1 GM in D5W 5% 50 ML IV SCH ×2 (08:00→16:00)
[2021-04-07] MEDS: DexAMETHasone SOD PHOS 10MG/1ML VIAL INJ IV SCH (08:09)
[2021-04-07] MEDS: ASCORBIC ACID 500 MG TAB PO SCH ×2 (08:30→22:01)
[2021-04-07] MEDS: ZINC SULFATE 220mg CAP or TAB PO SCH (08:30)
[2021-04-07] MEDS: FAMOTIDINE 20 MG TAB PO SCH (08:30)
[2021-04-07] MEDS: ENOXAPARIN SOD 40 MG/0.4 ML SYRINGE SC SCH ×2 (08:31→22:01)
[2021-04-07] MEDS: CHOLECALCIFEROL (VITD3) 2,000 UNIT CAP/TAB PO SCH (08:31)
[2021-04-07 08:47] VITALS: BP 120/70
[2021-04-07 08:48] LABS: Albumin 2.9 g/dL (3.4-5.0); Anion Gap 1 (5-15); Blood Urea Nitrogen 10 mg/dL (7-18); Calcium 9.3 mg/dL (8.5-10.1); Carbon Dioxide 38 mmol/L (21-32); Chloride 101 mmol/L (98-107); Glucose 95 mg/dL (74-106); Potassium 3.9 mmol/L (3.5-5.1); Sodium 140 mmol/L (136-145)
[2021-04-07] MEDS: THROAT LOZENGES(CEPASTAT) MT PRN (10:08)
[2021-04-07] MEDS: ACETAMINOPHEN 325 MG TAB PO PRN (10:08)
[2021-04-07 10:41] LABS: Alanine Aminotransferase 42 U/L (13-56); Alkaline Phosphatase 104 U/L (45-117); Aspartate Aminotransferase 38 U/L (15-37); BUN/Creatinine Ratio 16.1; CRP High Sensitivity 1.66 mg/dL (< 0.3); GFR African American 125 mL/min; GFR Non-African American 103 mL/min; Total Protein 6.7 g/dL (6.4-8.2)
[2021-04-07] MEDS: amLODIPine BESYLATE 5 MG TAB PO SCH (11:30)
[2021-04-07 13:00] VITALS: BP 138/66
[2021-04-07] MEDS ORDERED: fentaNYL CITRATE 100 MCG/2 ML VL ONE (13:10)
[2021-04-07] MEDS ORDERED: MIDAZOLAM HCL 2MG/2ML 2ml VIAL (1mg/ml) ONE (13:10)
[2021-04-07] MEDS ORDERED: PROPOFOL 10 MG/ML 20 ML IV ONE (13:11)
[2021-04-07] MEDS ORDERED: KETAMINE HCL 0 ML ONE (13:11)
[2021-04-07] MEDS ORDERED: SODIUM CHLORIDE LOCK 10 ML ONE (13:11)
[2021-04-07] MEDS ORDERED: BUPIVACAINE W/ EPINEPH 0.25% INJ 50ML MDV ONE (13:21)
[2021-04-07] MEDS ORDERED: BUPIVACAINE 0.25% INJ 50ML VIAL ONE (13:21)
[2021-04-07] MEDS ORDERED: LIDOCAINE W/ EPINEPHRINE 1% 20ML VIAL ONE (13:47)
[2021-04-07] MEDS: REMDESIVIR 100mg 100 MG in SODIUM CHL 0.9% 230 ML IV SCH (15:00)
[2021-04-07] MEDS ORDERED: AMLO-496 PO (15:12)
[2021-04-07] MEDS ORDERED: IPRIH INH (15:12)
[2021-04-07] MEDS ORDERED: CETI10CA5 PO (15:12)
[2021-04-07 17:00] VITALS: BP 120/79
[2021-04-07 22:00] VITALS: BP 137/78
[2021-04-08 05:21] VITALS: BP 122/70
[2021-04-08] MEDS: IPRATROPIUM BROMIDE HFA AER IN SCH ×3 (05:59→16:29)
[2021-04-08] MEDS: ACCU-CHEK COMFORT CURVE STRIP VI SCH ×3 (06:17→16:29)
[2021-04-08] MEDS: InsuLIN REG 1unit/0.01ml Soln (100units/ml) SC SCH ×3 (06:18→16:29)
[2021-04-08 07:40] LABS: Basophils # (auto) 0 10 ^3/uL (0-0.2); Basophils % (auto) 0.3 % (0.0-2.0); Eosinophils # (auto) 0.2 10 ^3/uL (0-0.8); Eosinophils % (auto) 2.9 % (0.0-7.0); Hematocrit 44.2 % (36.0-46.0); Hemoglobin 14.4 g/dL (12.2-16.2); Lymphocytes # (auto) 0.9 10 ^3/uL (0.4-5.4); Lymphocytes % (auto) 15.5 % (10.0-50.0); Mean Corpuscular Hemoglobin 30.7 pg (28.0-32.0); Mean Corpuscular Hgb Conc. 32.5 g/dL (32.0-36.0); Mean Corpuscular Volume 94.5 fL (80.0-100.0); Monocytes # (auto) 0.9 10 ^3/uL (0-1.3); Neutrophils # (auto) 3.6 10 ^3/uL (1.6-8.6); Neutrophils % (auto) 64.3 % (37.0-80.0); Nucleated Red Blood Cells % 0.1 %; Red Blood Cells 4.68 10^6/uL (4.0-5.20); Red Cell Distribution Width 13.9 % (11.8-14.3); White Blood Cell 5.6 10^3/uL (4.4-10.8)
[2021-04-08 07:53] LABS: Potassium 3.4 mmol/L (3.5-5.1)
[2021-04-08 07:58] LABS: BUN/Creatinine Ratio 23.6
[2021-04-08] MEDS: AZTREONAM 1GM INJ 1 GM in D5W 5% 50 ML IV SCH ×4 (08:00→16:00)
[2021-04-08 09:00] VITALS: BP 130/76
[2021-04-08] MEDS ORDERED: LORATADINE 10 MG TAB PO SCH (10:00)
[2021-04-08] MEDS: amLODIPine BESYLATE 5 MG TAB PO SCH (10:13)
[2021-04-08] MEDS: DexAMETHasone SOD PHOS 10MG/1ML VIAL INJ IV SCH (10:13)
[2021-04-08] MEDS: ZINC SULFATE 220mg CAP or TAB PO SCH (10:13)
[2021-04-08] MEDS: ASCORBIC ACID 500 MG TAB PO SCH (10:14)
[2021-04-08] MEDS: CHOLECALCIFEROL (VITD3) 2,000 UNIT CAP/TAB PO SCH (10:14)
[2021-04-08] MEDS: FAMOTIDINE 20 MG TAB PO SCH (10:14)
[2021-04-08] MEDS: ENOXAPARIN SOD 40 MG/0.4 ML SYRINGE SC SCH (10:14)
[2021-04-08 12:30] VITALS: BP 151/70
[2021-04-08 17:00] VITALS: BP 135/73
== END 2021-04-08 18:20 | disposition home health service (06) | DRG 137 ==
LOC: ER 12:51 → TELE 04-03 06:28 → TELE-EAST 04-05 21:06
PROVIDERS: ADMIT Nurse Practitioner Family; ATTEND Hospitalist
PROC: XW033E5 Introduction of Remdesivir Anti-infective into Peripheral Vein, Percutaneous Approach, New Technology Group 5 (ICD-10-PCS; 2021-04-03)
PROC: 05HD33Z Insertion of Infusion Device into Right Cephalic Vein, Percutaneous Approach (ICD-10-PCS; principal; 2021-04-06)
PROC: B54MZZA Ultrasonography of Right Upper Extremity Veins, Guidance (ICD-10-PCS; 2021-04-06)
PROC: 0X9D0ZZ Drainage of Right Lower Arm, Open Approach (ICD-10-PCS; 2021-04-07)
DX: U07.1 COVID-19 (principal); J96.01 Acute respiratory failure with hypoxia; J12.82 Pneumonia due to coronavirus disease 2019; J44.0 Chronic obstructive pulmonary disease with (acute) lower respiratory infection; L02.413 Cutaneous abscess of right upper limb; E11.9 Type 2 diabetes mellitus without complications; E66.9 Obesity, unspecified; J44.1 Chronic obstructive pulmonary disease with (acute) exacerbation; J98.11 Atelectasis; F41.9 Anxiety disorder, unspecified; I10 Essential (primary) hypertension; Z68.37 Body mass index [BMI] 37.0-37.9, adult; Z90.49 Acquired absence of other specified parts of digestive tract; Z90.710 Acquired absence of both cervix and uterus; Z86.73 Personal history of transient ischemic attack (TIA), and cerebral infarction without residual deficits; Z88.5 Allergy status to narcotic agent; Z88.8 Allergy status to other drugs, medicaments and biological substances; Z88.2 Allergy status to sulfonamides; Z91.013 Allergy to seafood
CPT/HCPCS: 36415; 36600; 71045; 71250; 73200; 76881; 76942; 80048; 80053; 80202; 81001; 82728; 82805; 82962; 83735; 83880; 84484; 85025; 85379; 85610; 85730; 86141; 87070; 87075; 87205; 87426; 93005; 93970; 94640; 96365; 96367; 96375; 97110; 97530; 99291; G0378; J0696; J1100; J1815; J2250; J2704; J3490; J7060

== ENCOUNTER 2021-10-06 15:24 | Inpatient (IN) | payer MEDICARE, MEDICAID ==
[~2021-10-06] VITALS: Ht 170.2 cm; Wt 98.0 kg
[~2021-10-06 15:24] MED LIST changes: -ALBUAER3 IN; -AMLO-489 PO; +AMLO-496 PO; -CARI-277 PO; +CETI10CA5 PO; -CETI10TA2 PO; -IPRA0.03; +IPRIH INH; -LEVO500T31 PO; -TAMIFLU PO; -TIOT17SP IN; -TRAM50TA2
[2021-10-06 17:00] VITALS: BP 178/107
[2021-10-06] MEDS ORDERED: cloNIDine HCL 0.1 MG TAB PO PRN (18:15)
[2021-10-06] MEDS ORDERED: hydrALAZINE HCL 20 MG/ML VL IV PRN (18:15)
[2021-10-06] MEDS: hydrALAZINE HCL 20 MG/ML VL IV ONE ×2 (18:25→22:30)
[2021-10-06] MEDS: LOSARTAN POTASSIUM 50 MG TAB PO ONE ×2 (18:26→20:13)
[2021-10-06] MEDS: FUROSEMIDE 40 MG/4 ML VIAL IV ONE ×2 (18:26→20:13)
[2021-10-06] MEDS ORDERED: ALUM & MAG HYDROX-SIMETH LIQ(MAALOX) 30 ML PO PRN (18:30)
[2021-10-06] MEDS ORDERED: LORazepam 0.5 MG TAB PO PRN (18:30)
[2021-10-06] MEDS ORDERED: ONDANSETRON HCL 4 MG/2 ML VIAL IV PRN (18:30)
[2021-10-06 19:16] VITALS: BP 178/107
[2021-10-06 19:30] LABS: Basophils # (auto) 0.1 10 ^3/uL (0-0.2); Basophils % (auto) 1.5 % (0.0-2.0); Eosinophils # (auto) 0.2 10 ^3/uL (0-0.8); Eosinophils % (auto) 2.8 % (0.0-7.0); Hematocrit 51.8 % (36.0-46.0); Hemoglobin 16.9 g/dL (12.2-16.2); Lymphocytes # (auto) 2.1 10 ^3/uL (0.4-5.4); Lymphocytes % (auto) 29.4 % (10.0-50.0); Mean Corpuscular Hgb Conc. 32.6 g/dL (32.0-36.0); Mean Corpuscular Volume 92.1 fL (80.0-100.0); Monocytes # (auto) 0.6 10 ^3/uL (0-1.3); Monocytes % (auto) 8.2 % (0.0-12.0); Neutrophils # (auto) 4.2 10 ^3/uL (1.6-8.6); Neutrophils % (auto) 58.1 % (37.0-80.0); Nucleated Red Blood Cells % 0.2 %; Red Blood Cells 5.63 10^6/uL (4.0-5.20); Red Cell Distribution Width 14.3 % (11.8-14.3); White Blood Cell 7.2 10^3/uL (4.4-10.8)
[2021-10-06 19:46] LABS: INR 0.97 (0.9-1.15); Partial Thromboplastin Time 37.5 sec (24.6-33.4)
[2021-10-06 20:00] LABS: Folate (Folic Acid) > 24.00 ng/mL (5.38-24)
[2021-10-06 20:12] LABS: Albumin 3.9 g/dL (3.4-5.0); BUN/Creatinine Ratio 17.2; Calcium 9.1 mg/dL (8.5-10.1); Magnesium 2.3 mg/dL (1.6-2.6); Potassium 4.3 mmol/L (3.5-5.1)
[2021-10-06 20:15] LABS: Bilirubin, Total 0.7 mg/dL (0.2-1.0); Total Protein 7.9 g/dL (6.4-8.2)
[2021-10-06] MEDS: SODIUM CHLOR 0.9% PF (SALINE LOCK) 10ML VIAL/SYR IV SCH (20:22)
[2021-10-06] MEDS: IPRATROPIUM BROM 0.5 MG/2.5ML INH SOL NEB SCH (22:16)
[2021-10-06 22:30] VITALS: BP 142/84
[2021-10-06] MEDS ORDERED: IPRATROPIUM BROM 0.5 MG/2.5ML INH SOL NEB PRN (22:45)
[2021-10-07] MEDS ORDERED: LEVALBUTEROL HCL 1.25 MG/3 ML NEB NEB SCH
[2021-10-07 05:08] LABS: Urine Bacteria FEW /hpf (None Seen); Urine Blood Negative /uL (Negative); Urine Specific Gravity 1.012 (1.001-1.035); Urine WBC <1 /hpf (0 - 5)
[2021-10-07 05:14] VITALS: BP 128/74
[2021-10-07] MEDS: SODIUM CHLOR 0.9% PF (SALINE LOCK) 10ML VIAL/SYR IV SCH ×3 (06:02→21:54)
[2021-10-07] MEDS: IPRATROPIUM BROM 0.5 MG/2.5ML INH SOL NEB SCH ×4 (06:26→23:46)
[2021-10-07 09:00] VITALS: BP 116/54
[2021-10-07] MEDS: FUROSEMIDE 40 MG/4 ML VIAL IV SCH (10:00)
[2021-10-07] MEDS ORDERED: ERGOCALCIFEROL 50,000 UNIT(1.25MG) CAP PO SCH (10:00)
[2021-10-07] MEDS ORDERED: CYANOCOBALAMIN (B-12) 1000 MCG/1 ML VIAL IM ONE (10:00)
[2021-10-07] MEDS: ENOXAPARIN SOD 40 MG/0.4 ML SYRINGE SC SCH (10:00)
[2021-10-07] MEDS: LOSARTAN POTASSIUM 50 MG TAB PO SCH (10:12)
[2021-10-07 13:00] VITALS: BP 130/60
[2021-10-07 16:47] VITALS: BP 107/54
[2021-10-07 22:00] VITALS: BP 109/66
[2021-10-08 05:00] VITALS: BP 104/57
[2021-10-08] MEDS: SODIUM CHLOR 0.9% PF (SALINE LOCK) 10ML VIAL/SYR IV SCH ×3 (05:53→21:31)
[2021-10-08] MEDS: IPRATROPIUM BROM 0.5 MG/2.5ML INH SOL NEB SCH ×4 (06:37→23:46)
[2021-10-08 09:00] VITALS: BP 141/85
[2021-10-08] MEDS: CYANOCOBALAMIN (B-12) 1000 MCG/1 ML VIAL IM SCH (09:22)
[2021-10-08] MEDS: FUROSEMIDE 40 MG/4 ML VIAL IV SCH (09:22)
[2021-10-08] MEDS: LOSARTAN POTASSIUM 50 MG TAB PO SCH (09:23)
[2021-10-08] MEDS: ENOXAPARIN SOD 40 MG/0.4 ML SYRINGE SC SCH (09:23)
[2021-10-08 13:00] VITALS: BP 138/88
[2021-10-08] MEDS: ACETAMINOPHEN 325 MG TAB PO PRN (14:35)
[2021-10-08 17:00] VITALS: BP 150/98
[2021-10-08] MEDS ORDERED: FUROSEMIDE 40 MG/4 ML VIAL IV ONE (21:15)
[2021-10-08 22:00] VITALS: BP 105/71
[2021-10-09 05:00] VITALS: BP 124/59
[2021-10-09] MEDS: SODIUM CHLOR 0.9% PF (SALINE LOCK) 10ML VIAL/SYR IV SCH ×3 (05:28→21:07)
[2021-10-09] MEDS: ACETAMINOPHEN 325 MG TAB PO PRN ×3 (05:29→13:32)
[2021-10-09] MEDS: IPRATROPIUM BROM 0.5 MG/2.5ML INH SOL NEB SCH ×3 (06:27→19:16)
[2021-10-09 09:39] VITALS: BP 114/76
[2021-10-09] MEDS: LOSARTAN POTASSIUM 50 MG TAB PO SCH (09:43)
[2021-10-09] MEDS: CYANOCOBALAMIN (B-12) 1000 MCG/1 ML VIAL IM SCH (09:45)
[2021-10-09] MEDS: FUROSEMIDE 40 MG/4 ML VIAL IV SCH (09:46)
[2021-10-09] MEDS: ENOXAPARIN SOD 40 MG/0.4 ML SYRINGE SC SCH (09:46)
[2021-10-09 13:26] VITALS: BP 133/80
[2021-10-09 16:57] VITALS: BP 124/80
[2021-10-09 17:53] VITALS: BP 124/80
[2021-10-09 22:00] VITALS: BP 106/58
[2021-10-10] MEDS: IPRATROPIUM BROM 0.5 MG/2.5ML INH SOL NEB SCH ×3 (00:47→13:20)
[2021-10-10] MEDS: ACETAMINOPHEN 325 MG TAB PO PRN (02:28)
[2021-10-10 05:17] VITALS: BP 106/55
[2021-10-10] MEDS: SODIUM CHLOR 0.9% PF (SALINE LOCK) 10ML VIAL/SYR IV SCH ×2 (05:43→14:00)
[2021-10-10 09:00] VITALS: BP 132/83
[2021-10-10] MEDS: CYANOCOBALAMIN (B-12) 1000 MCG/1 ML VIAL IM SCH (09:32)
[2021-10-10] MEDS: FUROSEMIDE 40 MG/4 ML VIAL IV SCH (09:32)
[2021-10-10] MEDS: LOSARTAN POTASSIUM 50 MG TAB PO SCH (09:32)
[2021-10-10] MEDS: ENOXAPARIN SOD 40 MG/0.4 ML SYRINGE SC SCH (09:33)
[2021-10-10 13:00] VITALS: BP 148/76
[2021-10-10] MEDS ORDERED: FURO1TAB33 PO (13:26)
[2021-10-10] MEDS ORDERED: LOSA-69 PO (13:26)
[2021-10-10] MEDS ORDERED: ERGO1CAP23 PO (13:26)
[2021-10-10] MEDS ORDERED: CYANOCOBALAMIN (B-12) 1000 MCG/1 ML VIAL IM ONE (13:30)
[2021-10-10 14:11] VITALS: BP 148/76
[2021-10-10 14:40] LABS: BUN/Creatinine Ratio 23.4; Calcium 9.9 mg/dL (8.5-10.1); Potassium 4.4 mmol/L (3.5-5.1)
[2021-10-10] MEDS ORDERED: FUROSEMIDE 20 MG/2 ML VIAL IV STA (15:01)
== END 2021-10-10 15:30 | disposition home or self-care (01) | DRG 140 ==
LOC: TELE-WESTW 15:24
PROVIDERS: ADMIT Internal Medicine; ATTEND Internal Medicine
DX: J44.1 Chronic obstructive pulmonary disease with (acute) exacerbation (principal); J96.20 Acute and chronic respiratory failure, unspecified whether with hypoxia or hypercapnia; I50.43 Acute on chronic combined systolic (congestive) and diastolic (congestive) heart failure; E11.51 Type 2 diabetes mellitus with diabetic peripheral angiopathy without gangrene; E66.01 Morbid (severe) obesity due to excess calories; I89.0 Lymphedema, not elsewhere classified; I11.0 Hypertensive heart disease with heart failure; Z88.0 Allergy status to penicillin; Z88.5 Allergy status to narcotic agent; Z88.8 Allergy status to other drugs, medicaments and biological substances; Z91.013 Allergy to seafood; Z82.49 Family history of ischemic heart disease and other diseases of the circulatory system; Z68.33 Body mass index [BMI] 33.0-33.9, adult
CPT/HCPCS: 36415; 36600; 71250; 74176; 80048; 80053; 81001; 82306; 82607; 82746; 82805; 83036; 83735; 83880; 84484; 85025; 85379; 85610; 85730; 93306; 93925; 93970; 94640; G0378

== ENCOUNTER 2022-12-05 20:40 | Inpatient (IN) | payer MEDICARE, MEDICAID ==
[~2022-12-05] VITALS: Ht 170.2 cm; Wt 97.1 kg
[~2022-12-05 20:40] MED LIST changes: -AMLO-496 PO; -CETI10CA5 PO; +ERGO1CAP23 PO; +FURO1TAB33 PO; +LOSA50TA46 PO
[2022-12-05 21:10] VITALS: PULSE 115; RESP 25; O2SAT 92
[2022-12-05 21:33] LABS: Basophils # (auto) 0 10 ^3/uL (0-0.2); Basophils % (auto) 0.4 % (0.0-2.0); Eosinophils # (auto) 0.2 10 ^3/uL (0-0.8); Eosinophils % (auto) 2.4 % (0.0-7.0); Hematocrit 45.7 % (36.0-46.0); Lymphocytes # (auto) 1.7 10 ^3/uL (0.4-5.4); Lymphocytes % (auto) 19.1 % (10.0-50.0); Mean Corpuscular Hemoglobin 31.5 pg (28.0-32.0); Mean Corpuscular Hgb Conc. 32.8 g/dL (32.0-36.0); Mean Corpuscular Volume 96.1 fL (80.0-100.0); Monocytes # (auto) 0.8 10 ^3/uL (0-1.3); Neutrophils # (auto) 6.1 10 ^3/uL (1.6-8.6); Neutrophils % (auto) 69.1 % (37.0-80.0); Nucleated Red Blood Cells % 0.2 %; Red Blood Cells 4.75 10^6/uL (4.0-5.20); Red Cell Distribution Width 13.6 % (11.8-14.3); White Blood Cell 8.8 10^3/uL (4.4-10.8)
[2022-12-05 21:38] LABS: Alanine Aminotransferase 27 U/L (7-40); Albumin 4.8 g/dL (3.2-4.8); Alkaline Phosphatase 100 U/L (46-116); Anion Gap 3 (5-15); Aspartate Aminotransferase 16 U/L (13-40); BUN/Creatinine Ratio 14.1 (10.0-20.0); Bilirubin, Total 0.5 mg/dL (0.2-1.0); Blood Urea Nitrogen 14 mg/dL (9-23); Calcium 10.2 mg/dL (8.7-10.4); Carbon Dioxide 33 mmol/L (20-30); Chloride 103 mmol/L (98-107); Glucose 153 mg/dL (74-106); Magnesium 2.1 mg/dL (1.6-2.6); Potassium 4.4 mmol/L (3.5-5.1); Sodium 139 mmol/L (136-145); Total Protein 7.6 g/dL (5.7-8.2)
[2022-12-05 21:47] LABS: INR 0.98 (0.9-1.15); Partial Thromboplastin Time 29.9 SEC (24.5-34.5); Prothrombin Time 10.3 sec (9.3-11.8)
[2022-12-05] MEDS ORDERED: LEVALBUTEROL HCL 1.25 MG/3 ML NEB NEB ONE (22:00)
[2022-12-05] MEDS ORDERED: ASPirin 325 MG TAB PO ONE (22:00)
[2022-12-05] MEDS ORDERED: DexAMETHasone SOD PHOS 10MG/1ML VIAL INJ IV ONE (22:00)
[2022-12-05] MEDS ORDERED: IPRATROPIUM BROM 0.5 MG/2.5ML INH SOL NEB ONE (22:00)
[2022-12-05] MEDS ORDERED: ENOXAPARIN SOD 100 MG/1 ML SYRINGE SC ONE (23:00)
[2022-12-06] VITALS (17 sets, daily range): BP systolic 132–164; BP diastolic 73–106; PULSE 87–112; RESP 13–24; TEMP 98.2–98.3; O2SAT 91–97
[2022-12-06] MEDS ORDERED: AZITHROMYCIN 500MG/ 250ML 250 ML IV ONE (01:00)
[2022-12-06] MEDS ORDERED: cefTRIAXone 1GM/50ML D5W 50 ML IV ONE (01:00)
[2022-12-06] MEDS ORDERED: LACTATED RINGER'S 1,000 ML IV ONE (01:00)
[2022-12-06] MEDS ORDERED: ONDANSETRON HCL 4 MG/2 ML VIAL IV PRN (03:15)
[2022-12-06] MEDS ORDERED: DEXTROSE (50%) 50ML SYRG IV PRN (03:15)
[2022-12-06 03:43] LABS: COVID19 ANTIGEN SOFIA FIA NEGATIVE (NEGATIVE); Rapid Influenza A Negative (Negative); Rapid Influenza B Negative (Negative)
[2022-12-06] MEDS: ACETAMINOPHEN 325 MG TAB PO PRN ×2 (06:20→21:37)
[2022-12-06 06:30] LABS: Urine Bacteria NONE SEEN /hpf (None Seen); Urine Blood 1+ /uL (Negative); Urine Clarity Clear (Clear); Urine Protein, UAD 1+ (Negative); Urine Specific Gravity 1.009 (1.001-1.035); Urine Urobilinogen Normal (Negative); Urine WBC 1 /hpf (0 - 5); Urine pH 5.5 (5.0-8.0)
[2022-12-06 06:31] LABS: Urine Color Straw (Yellow)
[2022-12-06] MEDS: InsuLIN REG 1unit/0.01ml Soln (100units/ml) SC SCH ×4 (06:51→21:50)
[2022-12-06] MEDS: ACCU-CHEK COMFORT CURVE STRIP VI SCH ×4 (06:54→21:46)
[2022-12-06] MEDS: IPRATROPIUM BROM 0.5 MG/2.5ML INH SOL NEB PRN ×2 (08:36→19:29)
[2022-12-06] MEDS ORDERED: diphenhdrAMINE HCL 50 MG/1 ML VL IV ONE ×2 (09:15→09:45)
[2022-12-06] MEDS ORDERED: LIDOCAINE 2%HCL (LOCAL ANESTH.) INJ 20ML MDV ONE (09:30)
[2022-12-06] MEDS ORDERED: IODIXANOL 320MG/ML 100ML BTL IV ONE (09:31)
[2022-12-06] MEDS ORDERED: HYDROCORTISONE SOD SUCC 100 MG/2ML INJ VIAL IV ONE (09:45)
[2022-12-06] MEDS ORDERED: ASPirin 81 mg TAB PO SCH (10:00)
[2022-12-06] MEDS ORDERED: FUROSEMIDE 20 MG TAB PO SCH (10:00)
[2022-12-06] MEDS ORDERED: DexAMETHasone SOD PHOS 10MG/1ML VIAL INJ IV ONE ×2 (10:15→11:00)
[2022-12-06] MEDS ORDERED: diphenhdrAMINE HCL 50 MG/1 ML VL ONE (10:54)
[2022-12-06] MEDS ORDERED: HEPARIN SODIUM (PORCINE) 5000 UNITS/ML 1ML VIAL ONE (10:54)
[2022-12-06] MEDS ORDERED: ANGIOMAX 250 MG VIAL IV ONE (10:54)
[2022-12-06] MEDS ORDERED: SODIUM CHL 0.9% 0 ML ONE (10:55)
[2022-12-06] MEDS ORDERED: VERAPAMIL 2.5MG/ML INJ 2ML VIAL IV ONE (10:56)
[2022-12-06] MEDS: LOSARTAN POTASSIUM 50 MG TAB PO SCH (13:55)
[2022-12-06] MEDS: PANTOPRAZOLE 40 MG TAB PO SCH (13:58)
[2022-12-06] MEDS ORDERED: OPTISON 3ml Vial for INJ IV ONE ×2 (14:54→15:30)
[2022-12-06] MEDS ORDERED: methylPREDNISolone SOD SUCC 40 MG/ML VL IV ONE (19:45)
[2022-12-06] MEDS ORDERED: FUROSEMIDE 40 MG/4 ML VIAL IV ONE (20:00)
[2022-12-06] MEDS: cefTRIAXone 1GM/50ML D5W 50 ML IV SCH (21:39)
[2022-12-06] MEDS ORDERED: AZITHROMYCIN 500MG/ 250ML 250 ML IV SCH (22:00)
[2022-12-06] MEDS ORDERED: ATORVASTATIN 20 MG TAB PO SCH (22:00)
[2022-12-07] VITALS (10 sets, daily range): BP systolic 116–138; BP diastolic 61–90; PULSE 77–115; RESP 16–20; TEMP 98.3–98.9; O2SAT 92–96
[2022-12-07] MEDS: InsuLIN REG 1unit/0.01ml Soln (100units/ml) SC SCH ×4 (06:16→23:26)
[2022-12-07] MEDS: ACCU-CHEK COMFORT CURVE STRIP VI SCH ×4 (06:22→23:30)
[2022-12-07 06:26] LABS: Basophils # (auto) 0 10 ^3/uL (0-0.2); Basophils % (auto) 0.1 % (0.0-2.0); Eosinophils # (auto) 0 10 ^3/uL (0-0.8); Hematocrit 44.3 % (36.0-46.0); Hemoglobin 14.8 g/dL (12.2-16.2); Lymphocytes # (auto) 1.1 10 ^3/uL (0.4-5.4); Mean Corpuscular Hemoglobin 31.8 pg (28.0-32.0); Mean Corpuscular Hgb Conc. 33.5 g/dL (32.0-36.0); Mean Corpuscular Volume 94.9 fL (80.0-100.0); Monocytes # (auto) 0.7 10 ^3/uL (0-1.3); Monocytes % (auto) 3.7 % (0.0-12.0); Neutrophils # (auto) 16.3 10 ^3/uL (1.6-8.6); Neutrophils % (auto) 90.2 % (37.0-80.0); Red Blood Cells 4.67 10^6/uL (4.0-5.20); Red Cell Distribution Width 13.1 % (11.8-14.3); White Blood Cell 18.1 10^3/uL (4.4-10.8)
[2022-12-07 06:35] LABS: Alanine Aminotransferase 24 U/L (7-40); Alkaline Phosphatase 88 U/L (46-116); Anion Gap 3 (5-15); BUN/Creatinine Ratio 14.3 (10.0-20.0); Blood Urea Nitrogen 13 mg/dL (9-23); Calcium 9.9 mg/dL (8.7-10.4); Carbon Dioxide 34 mmol/L (20-30); Chloride 101 mmol/L (98-107); Glucose 196 mg/dL (74-106); Potassium 4.3 mmol/L (3.5-5.1); Sodium 138 mmol/L (136-145)
[2022-12-07 06:37] LABS: Albumin 4.6 g/dL (3.2-4.8); Aspartate Aminotransferase 16 U/L (13-40); Bilirubin, Total 0.4 mg/dL (0.2-1.0); Total Protein 6.8 g/dL (5.7-8.2)
[2022-12-07] MEDS: LEVALBUTEROL HCL 1.25 MG/3 ML NEB NEB PRN ×2 (09:27→20:00)
[2022-12-07] MEDS: IPRATROPIUM BROM 0.5 MG/2.5ML INH SOL NEB PRN ×2 (09:27→20:02)
[2022-12-07] MEDS: FUROSEMIDE 40 MG/4 ML VIAL IV SCH (09:49)
[2022-12-07] MEDS: PANTOPRAZOLE 40 MG TAB PO SCH (09:49)
[2022-12-07] MEDS: ASPirin 81 mg TAB PO SCH (09:49)
[2022-12-07] MEDS: LOSARTAN POTASSIUM 50 MG TAB PO SCH (09:50)
[2022-12-07] MEDS: methylPREDNISolone SOD SUCC 40 MG/ML VL IV SCH ×2 (09:50→22:02)
[2022-12-07] MEDS: cefTRIAXone 1GM/50ML D5W 50 ML IV SCH (21:30)
[2022-12-07] MEDS: DOXYCYCLINE 100 MG TAB/CAP PO SCH (22:03)
[2022-12-07] MEDS: guaiFENesin-DM 100/10mg/5ml SYR PO PRN (22:03)
[2022-12-07] MEDS: INSULIN LANTUS (GLARGINE) 1 /0.01ml (100units/ml) SC SCH (23:28)
[2022-12-08] VITALS (13 sets, daily range): BP systolic 114–141; BP diastolic 62–94; PULSE 85–129; RESP 19–20; TEMP 97.1–97.8; O2SAT 90–99
[2022-12-08] MEDS: LEVALBUTEROL HCL 1.25 MG/3 ML NEB NEB SCH ×4 (00:40→18:59)
[2022-12-08] MEDS: IPRATROPIUM BROM 0.5 MG/2.5ML INH SOL NEB SCH ×4 (00:45→18:58)
[2022-12-08] MEDS: InsuLIN REG 1unit/0.01ml Soln (100units/ml) SC SCH ×4 (06:42→23:09)
[2022-12-08] MEDS: ACCU-CHEK COMFORT CURVE STRIP VI SCH ×4 (06:44→23:03)
[2022-12-08 08:31] LABS: Basophils # (auto) 0 10 ^3/uL (0-0.2); Basophils % (auto) 0.1 % (0.0-2.0); Eosinophils # (auto) 0.1 10 ^3/uL (0-0.8); Eosinophils % (auto) 0.5 % (0.0-7.0); Hematocrit 52.3 % (36.0-46.0); Hemoglobin 16.7 g/dL (12.2-16.2); Lymphocytes # (auto) 1.9 10 ^3/uL (0.4-5.4); Lymphocytes % (auto) 9.2 % (10.0-50.0); Mean Corpuscular Hemoglobin 31.1 pg (28.0-32.0); Mean Corpuscular Hgb Conc. 31.8 g/dL (32.0-36.0); Mean Corpuscular Volume 97.9 fL (80.0-100.0); Monocytes # (auto) 0.7 10 ^3/uL (0-1.3); Monocytes % (auto) 3.6 % (0.0-12.0); Neutrophils # (auto) 17.6 10 ^3/uL (1.6-8.6); Neutrophils % (auto) 86.6 % (37.0-80.0); Nucleated Red Blood Cells % 0.1 %; Red Blood Cells 5.35 10^6/uL (4.0-5.20); Red Cell Distribution Width 13.9 % (11.8-14.3); White Blood Cell 20.3 10^3/uL (4.4-10.8)
[2022-12-08] MEDS: FUROSEMIDE 40 MG/4 ML VIAL IV SCH (10:00)
[2022-12-08] MEDS: LOSARTAN POTASSIUM 50 MG TAB PO SCH ×2 (10:00→11:30)
[2022-12-08] MEDS: ASPirin 81 mg TAB PO SCH (10:00)
[2022-12-08] MEDS: DOXYCYCLINE 100 MG TAB/CAP PO SCH ×2 (10:00→22:53)
[2022-12-08] MEDS: methylPREDNISolone SOD SUCC 40 MG/ML VL IV SCH ×2 (10:00→22:59)
[2022-12-08 10:49] LABS: Chloride 99 mmol/L (98-107); Sodium 137 mmol/L (136-145)
[2022-12-08 10:52] LABS: Anion Gap 3 (5-15); Calcium 10.2 mg/dL (8.7-10.4); Carbon Dioxide 35 mmol/L (20-30)
[2022-12-08 10:57] LABS: Glucose 267 mg/dL (74-106)
[2022-12-08 11:05] LABS: BUN/Creatinine Ratio 17.1 (10.0-20.0); Blood Urea Nitrogen 19 mg/dL (9-23); Potassium 4.4 mmol/L (3.5-5.1)
[2022-12-08] MEDS: cefTRIAXone 1GM/50ML D5W 50 ML IV SCH (21:32)
[2022-12-08] MEDS: METOPROLOL TARTRATE 25 MG TAB PO SCH (22:55)
[2022-12-08] MEDS: guaiFENesin-DM 100/10mg/5ml SYR PO PRN (22:58)
[2022-12-08] MEDS: INSULIN LANTUS (GLARGINE) 1 /0.01ml (100units/ml) SC SCH (23:12)
[2022-12-09] VITALS (13 sets, daily range): BP systolic 134–162; BP diastolic 71–90; PULSE 78–108; RESP 16–24; TEMP 36.4; O2SAT 92–98
[2022-12-09] MEDS: LEVALBUTEROL HCL 1.25 MG/3 ML NEB NEB SCH ×3 (00:17→12:33)
[2022-12-09] MEDS: IPRATROPIUM BROM 0.5 MG/2.5ML INH SOL NEB SCH ×3 (00:17→12:31)
[2022-12-09 05:48] LABS: Anion Gap 4 (5-15); Carbon Dioxide 36 mmol/L (20-30); Chloride 97 mmol/L (98-107); Potassium 4.6 mmol/L (3.5-5.1); Sodium 137 mmol/L (136-145)
[2022-12-09 05:54] LABS: BUN/Creatinine Ratio 26.7 (10.0-20.0); Blood Urea Nitrogen 28 mg/dL (9-23); Glucose 185 mg/dL (74-106)
[2022-12-09 05:59] LABS: Hematocrit 48.2 % (36.0-46.0); Hemoglobin 15.5 g/dL (12.2-16.2); Mean Corpuscular Hemoglobin 30.6 pg (28.0-32.0); Mean Corpuscular Hgb Conc. 32.1 g/dL (32.0-36.0); Mean Corpuscular Volume 95.3 fL (80.0-100.0); Red Blood Cells 5.06 10^6/uL (4.0-5.20); Red Cell Distribution Width 13.3 % (11.8-14.3); White Blood Cell 12.8 10^3/uL (4.4-10.8)
[2022-12-09] MEDS: ACCU-CHEK COMFORT CURVE STRIP VI SCH ×2 (06:53→11:30)
[2022-12-09] MEDS: InsuLIN REG 1unit/0.01ml Soln (100units/ml) SC SCH ×2 (06:55→11:30)
[2022-12-09] MEDS ORDERED: EMPAGLIFLOZIN 10 MG TAB PO SCH (07:00)
[2022-12-09 07:32] LABS: Basophils % (manual) 0 (0.0-2.0); Blast Cells 0; Eosinophils % (manual) 0 (0-7); Metamyelocytes % 0; Myelocytes % 0; Promyelocytes % 0; Reactive Lymphocytes 0
[2022-12-09 09:47] LABS: Band Neutrophils % (manual) 8; Lymphocytes % (manual) 7 (10.0-50.0); Monocytes % (manual) 4 (0-12); Platelet Estimate Adequate
[2022-12-09] MEDS: LOSARTAN POTASSIUM 50 MG TAB PO SCH (10:00)
[2022-12-09] MEDS ORDERED: PRED20TA2 PO (10:10)
[2022-12-09] MEDS ORDERED: DOXY-448 PO (10:10)
[2022-12-09] MEDS: methylPREDNISolone SOD SUCC 40 MG/ML VL IV SCH (10:54)
[2022-12-09] MEDS: FUROSEMIDE 40 MG/4 ML VIAL IV SCH (10:54)
[2022-12-09] MEDS: ASPirin 81 mg TAB PO SCH (10:54)
[2022-12-09] MEDS: DOXYCYCLINE 100 MG TAB/CAP PO SCH (10:56)
[2022-12-09] MEDS: METOPROLOL TARTRATE 25 MG TAB PO SCH (10:56)
[2022-12-09] MEDS ORDERED: LABETALOL HCL 5 MG/ML 4ML SYRINGE IV ONE (16:15)
[2022-12-09] MEDS ORDERED: METOPROLOL TARTRATE 25 MG TAB PO ONE (16:45)
== END 2022-12-09 17:21 | disposition home health service (06) | DRG 192 ==
LOC: EDBD 20:40 → ER 20:40 → TELE 12-06 03:10 → TELE-WESTW 12-06 09:20
PROVIDERS: ADMIT Internal Medicine Pulmonary Disease; ATTEND Internal Medicine Pulmonary Disease
PROC: 4A023N7 Measurement of Cardiac Sampling and Pressure, Left Heart, Percutaneous Approach (ICD-10-PCS; principal; 2022-12-06)
PROC: B215YZZ Fluoroscopy of Left Heart using Other Contrast (ICD-10-PCS; 2022-12-06)
PROC: B211YZZ Fluoroscopy of Multiple Coronary Arteries using Other Contrast (ICD-10-PCS; 2022-12-06)
DX: I11.0 Hypertensive heart disease with heart failure (principal); J96.20 Acute and chronic respiratory failure, unspecified whether with hypoxia or hypercapnia; J15.6 Pneumonia due to other Gram-negative bacteria; I21.A1 Myocardial infarction type 2; J15.9 Unspecified bacterial pneumonia; E11.51 Type 2 diabetes mellitus with diabetic peripheral angiopathy without gangrene; I48.91 Unspecified atrial fibrillation; I50.21 Acute systolic (congestive) heart failure; Z99.81 Dependence on supplemental oxygen; Z20.822 Contact with and (suspected) exposure to COVID-19; J44.0 Chronic obstructive pulmonary disease with (acute) lower respiratory infection; E66.01 Morbid (severe) obesity due to excess calories; E11.65 Type 2 diabetes mellitus with hyperglycemia; I25.5 Ischemic cardiomyopathy; J44.1 Chronic obstructive pulmonary disease with (acute) exacerbation; E78.5 Hyperlipidemia, unspecified; I25.10 Atherosclerotic heart disease of native coronary artery without angina pectoris; M79.7 Fibromyalgia; Z90.710 Acquired absence of both cervix and uterus; I25.2 Old myocardial infarction; Z82.49 Family history of ischemic heart disease and other diseases of the circulatory system; Z86.73 Personal history of transient ischemic attack (TIA), and cerebral infarction without residual deficits; Z88.0 Allergy status to penicillin; Z91.013 Allergy to seafood; Z88.1 Allergy status to other antibiotic agents; Z68.33 Body mass index [BMI] 33.0-33.9, adult; Z88.8 Allergy status to other drugs, medicaments and biological substances; Z88.5 Allergy status to narcotic agent
CPT/HCPCS: 36415; 71045; 71250; 80048; 80053; 81001; 82962; 83735; 83880; 84484; 85007; 85025; 85027; 85379; 85610; 85730; 87070; 87077; 87081; 87205; 87426; 87804; 93005; 93306; 93458; 94640; 96372; 97110; 97116; 97163; 97530; 99152; 99291; G0378; J0696; J1100; J1815; J3490; Q9956; Q9967